=== PATIENT | male | born 1945 | race Hispanic/Latino ===

== ENCOUNTER → 2022-02-17 | Outpatient (CLI) | payer OTHER | END | disposition home or self-care (01) | LOC: RAH 13:56 | PROVIDERS: ATTEND Internal Medicine Cardiovascular Disease | DX: Z13.6 Encounter for screening for cardiovascular disorders (principal); R93.1 Abnormal findings on diagnostic imaging of heart and coronary circulation | CPT/HCPCS: 75571 ==

== ENCOUNTER → 2022-07-25 | Outpatient (CLI) | payer OTHER ==
[2022-07-25 12:14] LABS: CREATININE 1.4 mg/dL (0.5-1.5)
== END | disposition home or self-care (01) ==
LOC: LAB 09:39
PROVIDERS: ATTEND Internal Medicine Cardiovascular Disease
DX: I10 Essential (primary) hypertension (principal); I25.84 Coronary atherosclerosis due to calcified coronary lesion
CPT/HCPCS: 36415; 82565; 84520

== ENCOUNTER → 2022-07-27 | Outpatient (CLI) | payer OTHER ==
[~2022-07-27] MED LIST: IOHEXOL 350 MG/ML 100ML INFUS..BTL IV ONE
== END | disposition home or self-care (01) ==
LOC: RAH 10:03
PROVIDERS: ATTEND Family Medicine
DX: I25.10 Atherosclerotic heart disease of native coronary artery without angina pectoris (principal)
CPT/HCPCS: 75574; Q9967

== ENCOUNTER → 2022-08-30 | Outpatient (CLI) | payer OTHER | END | disposition home or self-care (01) | LOC: SHCH 12:44 | PROVIDERS: ATTEND Internal Medicine Cardiovascular Disease | DX: I87.2 Venous insufficiency (chronic) (peripheral) (principal); I73.9 Peripheral vascular disease, unspecified | CPT/HCPCS: 93925; 93970 ==

== ENCOUNTER 2022-11-22 05:53 | Observation (INO) | payer OTHER ==
[2022-11-14 13:27] VITALS: BP 154/74; PULSE 65; RESP 18
[2022-11-14 13:28] LABS: BASOPHILS # (AUTO) 0.04 K/uL (0.00-0.20); BASOPHILS % (AUTO) 0.5 % (0.0-5.0); EOSINOPHILS # (AUTO) 0.25 K/uL (0.00-0.70); EOSINOPHILS % (AUTO) 2.9 % (0.0-8.0); HEMATOCRIT 48.5 % (42-54); IMMATURE GRANULOCYTE ABSOLUTE 0.01 K/uL (0-1); LYMPHOCYTES # (AUTO) 1.8 K/uL (1.0-4.8); LYMPHOCYTES % (AUTO) 21.2 % (21.0-51.0); MEAN CORPUSCULAR HEMOGLOBIN 30.3 pg (27.0-33.0); MEAN CORPUSCULAR HGB CONC 33.6 g/dL (32.0-36.0); MEAN CORPUSCULAR VOLUME 90.1 fL (79-99); MONOCYTES # (AUTO) 0.6 K/uL (0.1-1.0); MONOCYTES % (AUTO) 6.5 % (3.0-13.0); NEUTROPHILS # (AUTO) 5.9 K/uL (1.8-7.7); NEUTROPHILS % (AUTO) 68.8 % (40.0-77.0); PLATELET COUNT (AUTO) 171 K/uL (130-400); RED BLOOD CELL COUNT(AUTO) 5.38 MIL/uL (4.50-6.20); WHITE BLOOD COUNT (AUTO) 8.5 K/uL (4.8-10.8)
[2022-11-14 13:37] LABS: CREATININE 1.3 mg/dL (0.5-1.5)
[2022-11-14 13:40] LABS: INR 0.94 (0.85-1.15); PROTHROMBIN TIME 10.9 SEC (9.6-11.6)
[2022-11-14 13:42] LABS: PARTIAL THROMBOPLASTIN TIME 29.8 SEC (26.3-35.5)
[2022-11-14 14:22] LABS: B-TYPE NATRIURETIC PEPTIDE 15 pg/mL (0-100)
[2022-11-14 14:35] LABS: ADD UA MICROSCOPIC YES; APPEARANCE,URINE CLEAR (CLEAR); BILIRUBIN,URINE NEGATIVE (NEGATIVE); COLOR,URINE LIGHT-YELLOW (YELLOW); GLUCOSE, URINE (UA) >=1000 mg/dL (NEGATIVE); KETONES,URINE NEGATIVE (NEGATIVE); LEUKOCYTE ESTERASE ,URINE NEGATIVE Leu/uL (NEGATIVE); NITRATE,URINE NEGATIVE (NEGATIVE); OCCULT BLOOD,URINE NEGATIVE (NEGATIVE); PH,URINE 6.5 (5.0-8.0); PROTEIN,URINE 10 mg/dL (NEGATIVE); UROBILINOGEN,URINE 0.2 mg/dL (0.2-1.0)
[2022-11-14 14:46] LABS: RBC,URINE 0-1 /HPF (0-1)
[2022-11-22] VITALS (29 sets, daily range): BP systolic 118–143; BP diastolic 56–82; PULSE 66–93; RESP 10–21; O2SAT 98–99
[~2022-11-22] VITALS: Ht 165.1 cm; Wt 54.8 kg
[~2022-11-22 05:53] MED LIST changes: +AEC81 PO; +ATOR20TA65 PO; -IOHEXOL 350 MG/ML 100ML INFUS..BTL IV ONE; +LEVO5TAB13 PO; +LISI2.5T13 PO; +METF-446 PO
[2022-11-22] MEDS ORDERED: 0.9%NACL 1000ML 1,000 ML IV ONE (06:30)
[2022-11-22] MEDS ORDERED: FENTANYL CITRATE PF 50 MCG/1 ML 2ML VIAL ONE ×2 (07:07→09:03)
[2022-11-22] MEDS ORDERED: LIDOCAINE HCL 400MG/20ML VIAL ONE ×2 (07:07→07:22)
[2022-11-22] MEDS ORDERED: MIDAZOLAM HCL 1 MG/ML 2ML VIAL ONE ×2 (07:07→08:04)
[2022-11-22] MEDS ORDERED: IOHEXOL 350 MG/ML 100ML INFUS..BTL IV ONE ×2 (07:08→08:06)
[2022-11-22] MEDS ORDERED: IOHEXOL-350 50ML VIAL IV ONE (07:08)
[2022-11-22] MEDS ORDERED: BIVALIRUDIN 250 MG/VIAL IV ONE (07:44)
[2022-11-22] MEDS ORDERED: MORPHINE 4 MG SYG ONE (09:09)
[2022-11-22] MEDS ORDERED: ASPIRIN 81MG CHEW TAB ONE (09:13)
[2022-11-22] MEDS ORDERED: TICAGRELOR 90 MG TABLET ONE (09:14)
[2022-11-22] MEDS: NITROGLYCERIN 1GM OINT 1 INCH/1GM TD SCH ×3 (09:30→22:18)
[2022-11-22] MEDS ORDERED: GLUCAGON 1MG KIT 1 MG ML IM PRN (09:30)
[2022-11-22] MEDS ORDERED: NITROGLYCERIN 0.4 MG SL TAB SL PRN (09:30)
[2022-11-22] MEDS ORDERED: 0.9%NACL 1000ML 1,000 ML IV SCH (09:30)
[2022-11-22] MEDS ORDERED: DEXTROSE 50%-WATER 50 ML DISP.SYRIN IV PRN (09:30)
[2022-11-22] MEDS ORDERED: ONDANSETRON 4MG INJ ONE (10:27)
[2022-11-22] MEDS ORDERED: ONDANSETRON 4MG INJ IVP PRN (10:30)
[2022-11-22] MEDS ORDERED: ATROPINE 1MG SYG IVP ONE (11:03)
[2022-11-22] MEDS ORDERED: INSULIN HUMULIN R 100 UNIT/ML 3ML SQ SCH (11:30)
[2022-11-22] MEDS ORDERED: POTASSIUM CHLORIDE 20MEQ/100ML 100 ML IV PRN (13:30)
[2022-11-22] MEDS ORDERED: MAGNESIUM 2GM PREMIX 50ML 50 ML IV PRN (13:30)
[2022-11-22] MEDS ORDERED: POTASSIUM CHLORIDE 10% ELIXIR 20 MEQ/15 ML UDCUP PO PRN (13:30)
[2022-11-22] MEDS: INSULIN HUMULIN R 100 UNIT/ML 3ML SQ SCH ×2 (16:44→22:11)
[2022-11-22] MEDS: TICAGRELOR 90 MG TABLET PO SCH (22:09)
[2022-11-22] MEDS: METOPROLOL TARTRATE 25 MG TAB PO SCH (22:09)
[2022-11-23 00:40] VITALS: BP 124/75; PULSE 67; RESP 18
[2022-11-23 03:40] VITALS: BP 106/67; PULSE 63; RESP 18
[2022-11-23 04:14] LABS: BASOPHILS # (AUTO) 0.03 K/uL (0.00-0.20); BASOPHILS % (AUTO) 0.2 % (0.0-5.0); EOSINOPHILS # (AUTO) 0.03 K/uL (0.00-0.70); EOSINOPHILS % (AUTO) 0.2 % (0.0-8.0); HEMATOCRIT 41.9 % (42-54); IMMATURE GRANULOCYTE ABSOLUTE 0.07 K/uL (0-1); LYMPHOCYTES # (AUTO) 1.4 K/uL (1.0-4.8); LYMPHOCYTES % (AUTO) 7.4 % (21.0-51.0); MEAN CORPUSCULAR HEMOGLOBIN 30.7 pg (27.0-33.0); MEAN CORPUSCULAR HGB CONC 33.9 g/dL (32.0-36.0); MEAN CORPUSCULAR VOLUME 90.5 fL (79-99); MONOCYTES # (AUTO) 1.3 K/uL (0.1-1.0); MONOCYTES % (AUTO) 7.2 % (3.0-13.0); NEUTROPHILS # (AUTO) 15.6 K/uL (1.8-7.7); NEUTROPHILS % (AUTO) 84.6 % (40.0-77.0); PLATELET COUNT (AUTO) 161 K/uL (130-400); RED BLOOD CELL COUNT(AUTO) 4.63 MIL/uL (4.50-6.20); RED CELL DISTRIBUTION WIDTH 11.9 % (11.0-15.5); WHITE BLOOD COUNT (AUTO) 18.4 K/uL (4.8-10.8)
[2022-11-23 04:37] LABS: ALBUMIN 3.5 g/dL (3.5-5.0); BILIRUBIN,TOTAL 0.7 mg/dL (0.2-1.0); CREATININE 1.2 mg/dL (0.5-1.5); MAGNESIUM 1.8 mg/dL (1.80-2.40); POTASSIUM 3.3 mmol/L (3.5-5.1); TOTAL PROTEIN, SERUM 7.2 g/dL (6.0-8.3)
[2022-11-23 04:46] LABS: B-TYPE NATRIURETIC PEPTIDE 313 pg/mL (0-100)
[2022-11-23] MEDS: NITROGLYCERIN 1GM OINT 1 INCH/1GM TD SCH ×2 (04:55→08:07)
[2022-11-23] MEDS: INSULIN HUMULIN R 100 UNIT/ML 3ML SQ SCH ×2 (06:27→11:40)
[2022-11-23] MEDS ORDERED: TICA90TA PO (06:32)
[2022-11-23 07:00] VITALS: BP 111/58; PULSE 63; RESP 20
[2022-11-23] MEDS: KCL 20 MEQ ERTAB PO PRN ×2 (07:49→11:40)
[2022-11-23 08:00] VITALS: O2SAT 99
[2022-11-23] MEDS: TICAGRELOR 90 MG TABLET PO SCH (08:07)
[2022-11-23] MEDS: METOPROLOL TARTRATE 25 MG TAB PO SCH (08:07)
[2022-11-23 11:00] VITALS: BP 127/71; PULSE 61; RESP 18
[2022-11-23] MEDS ORDERED: FAMO-136 PO (11:51)
== END 2022-11-23 12:15 | disposition home or self-care (01) ==
LOC: DAH 05:53 → DAHIP 05:54 → 2AH 13:15
PROVIDERS: ADMIT Internal Medicine; ATTEND Internal Medicine
DX: I25.110 Atherosclerotic heart disease of native coronary artery with unstable angina pectoris (principal); I25.84 Coronary atherosclerosis due to calcified coronary lesion; I44.1 Atrioventricular block, second degree; I87.2 Venous insufficiency (chronic) (peripheral); R07.89 Other chest pain; E11.9 Type 2 diabetes mellitus without complications; I10 Essential (primary) hypertension; E78.5 Hyperlipidemia, unspecified; Z79.02 Long term (current) use of antithrombotics/antiplatelets; Z79.82 Long term (current) use of aspirin; Z79.84 Long term (current) use of oral hypoglycemic drugs; Z79.899 Other long term (current) drug therapy; Z95.0 Presence of cardiac pacemaker
CPT/HCPCS: 80048; 83880 ×2; 85025 ×2; 85610; 85730; 81001; 36415 ×2; 71045; 93005; 92978; 36005; 75820; 0715T; 93454; 37252; 37253 ×4; 82948 ×6; 96365; 96366; 83735; 80053; C1769 ×4; C1887 ×2; C1894 ×4; C1725 ×2; C1874 ×2; C1761; C1753 ×2; Q9965 ×3; G0378 ×26; J3010 ×2; J3490 ×2; J7030; J2250 ×2; J2405; J2270; J1644 ×2; J0583; Q9967 ×3; J1815 ×4; A4215; A4223 ×3; A6402; A4657; A4222; A4221; A4663; A4216; A4606; C9600; J3475; 92920; 96360; 96361; 99156; 99157; J0461

== ENCOUNTER → 2023-05-29 | Outpatient (CLI) | payer OTHER ==
[~2023-05-29] MED LIST changes: +FAMO-136 PO; +TICA90TA PO
== END | disposition home or self-care (01) ==
LOC: SHCH 13:15
PROVIDERS: ATTEND Internal Medicine Cardiovascular Disease
DX: Z09 Encounter for follow-up examination after completed treatment for conditions other than malignant neoplasm (principal); I87.2 Venous insufficiency (chronic) (peripheral)
CPT/HCPCS: 93971